=== PATIENT | male | born 1965 | race Caucasian/White ===

== ENCOUNTER 2018-03-21 01:40 | Emergency (ER) | payer BC ==
[~2018-03-21] VITALS: Ht 180.3 cm; Wt 104.5 kg
[2018-03-21 01:44] VITALS: BP 138/101
[2018-03-21] MEDS ORDERED: PRED20TA PO (02:04)
[2018-03-21] MEDS ORDERED: AMOX500C2 PO (02:04)
[2018-03-21] MEDS ORDERED: dexamethasone 4mg tablet PO ONE (02:05)
== END 2018-03-21 02:19 | disposition home or self-care (01) ==
LOC: ER 01:41
DX: J02.9 Acute pharyngitis, unspecified (principal); L23.7 Allergic contact dermatitis due to plants, except food; Z90.89 Acquired absence of other organs
CPT/HCPCS: 99283; J8540

== ENCOUNTER 2022-01-04 06:02 | Emergency (ER) | payer BC ==
[~2022-01-04] VITALS: Ht 180.3 cm; Wt 104.8 kg
--- NOTE | 2022-01-04 06:21 | NUR ---
Patient placed in room floor. Ultrasound machine is at bedside at request of .
[2022-01-04] MEDS ORDERED: morphine 4 MG/ML inj SYRINge IV ONE ×2 (06:35→07:30)
[2022-01-04] MEDS ORDERED: ondansetron/PF 4mg/2ml inj IV ONE (06:35)
[2022-01-04 07:01] LABS: BASOPHILS # (AUTO) 0.1 X10'3 (0-0.2); BASOPHILS % (AUTO) 0.4 % (0-1); EOSINOPHILS % (AUTO) 0.1 % (0-6); HEMATOCRIT 45.7 % (42.0-52.0); HEMOGLOBIN 15.8 g/dl (14.0-17.9); LYMPHOCYTES % (AUTO) 7.3 % (21-51); MEAN CORPUSCULAR HEMOGLOBIN 30.3 PG (27.0-31.0); MEAN CORPUSCULAR HGB CONC 34.6 g/dL (33.0-36.5); MEAN CORPUSCULAR VOLUME 87.5 FL (78-98); MEAN PLATELET VOLUME 7.8 FL (7.4-10.4); MONOCYTES # (AUTO) 0.5 X10'3 (0-0.9); MONOCYTES % (AUTO) 3.4 % (2-12); NEUTROPHILS # (AUTO) 12.3 X10'3 (1.8-7.7); NEUTROPHILS % (AUTO) 88.8 % (42-75); PLATELET COUNT 252 X10'3 (140-440); RED BLOOD COUNT 5.22 X10'6 (4.70-6.10); RED CELL DISTRIBUTION WIDTH 12.8 % (11.5-14.5); WHITE BLOOD COUNT 13.8 X10'3 (4.5-11.0)
[2022-01-04 07:17] VITALS: BP 176/93
[2022-01-04 07:17] LABS: ALANINE AMINOTRANSFERASE 49 U/L (12-78); ALBUMIN 4.4 G/DL (3.4-5.0); ALBUMIN/GLOBULIN RATIO 1.2 (1.1-1.5); ALKALINE PHOSPHATASE 50 IU/L (46-116); ANION GAP 10 (8-16); ASPARTATE AMINO TRANSFERASE 27 U/L (10-37); BILIRUBIN,TOTAL 0.5 MG/DL (0.1-1.0); BLOOD UREA NITROGEN 17 MG/DL (7-18); BUN/CREATININE RATIO 19.8 (5.4-32.0); C-REACTIVE PROTEIN 0.23 MG/DL (0.0-0.5); CHLORIDE 103 MMOL/L (99-107); CREATININE 0.86 MG/DL (0.60-1.10); GLUCOSE 123 MG/DL (70-104); LIPASE 75 U/L (73-393); POTASSIUM 4.3 MMOL/L (3.5-5.1); SODIUM 138 MMOL/L (135-145); TOTAL CARBON DIOXIDE 24.9 MMOL/L (24-32); TOTAL PROTEIN 8.1 G/DL (6.4-8.2); eGFR > 90 ML/MIN
[2022-01-04 07:23] LABS: CALCIUM 9.3 MG/DL (8.5-10.1)
[2022-01-04 07:36] LABS: CLARITY,URINE CLEAR (Clear); COLOR,URINE YELLOW (Yellow); GLUCOSE, URINE NEGATIVE (Neg); KETONES,URINE NEGATIVE (Neg); LEUKOCYTE ESTERASE ,URINE NEGATIVE (Neg); NITRITES, URINE NEGATIVE (Neg); OCCULT BLOOD,URINE NEGATIVE (Neg); PH,URINE 7.5 (4.8-8.0); PROTEIN,URINE NEGATIVE (Neg); UROBILINOGEN,URINE 0.2 E.U/dL (0.2-1.0)
[2022-01-04 07:44] LABS: UA COLLECTION TYPE CLN CATCH MIDSTREAM
[2022-01-07] MEDS ORDERED: ASPI-611 PO (11:39)
[2022-01-08] MEDS ORDERED: AMOX-580 PO (11:48)
== END 2022-01-04 08:13 | disposition home or self-care (01) ==
LOC: ER 06:03
DX: R10.84 Generalized abdominal pain (principal); R10.11 Right upper quadrant pain; R11.0 Nausea; Z72.0 Tobacco use
CPT/HCPCS: 36415; 76700; 80053; 81003; 83690; 85025; 86140; 96374; 96375; 96376; 99284; J2270; J2405

== ENCOUNTER 2023-06-01 09:05 | Emergency (ER) | payer BC ==
[~2023-06-01] VITALS: Ht 172.7 cm; Wt 100.6 kg
[~2023-06-01 09:05] MED LIST: AMOX-580 PO; ASPI-611 PO
[2023-06-01 09:13] VITALS: BP 128/79; PULSE 77; TEMP 97.9; O2SAT 100
[2023-06-01] MEDS ORDERED: ketorolac trometh inj. 60 MG/2 ML VIAL IM ONE (11:25)
[2023-06-01] MEDS ORDERED: NAPR-56 PO (11:28)
[2023-06-01 11:33] VITALS: RESP 8
== END 2023-06-01 11:48 | disposition home or self-care (01) ==
LOC: ER 09:06
DX: S93.602A Unspecified sprain of left foot, initial encounter (principal); Z79.82 Long term (current) use of aspirin; Z79.2 Long term (current) use of antibiotics; X58.XXXA Exposure to other specified factors, initial encounter; Y93.89 Activity, other specified; Y92.89 Other specified places as the place of occurrence of the external cause; Y99.8 Other external cause status
CPT/HCPCS: 73630; 96372; 99283; J1885